=== PATIENT | male | born 1960 | race Caucasian/White ===

== ENCOUNTER → 2023-12-19 11:10 | Outpatient (REF) | payer OTHER, SELFPAY | LOC: HWRAD 11:10 | PROVIDERS: ATTENDING PHYSICIAN Registered Nurse | DX: M25.511 Pain in right shoulder (principal); R05.3 Chronic cough | CPT/HCPCS: 71260; 74170; Q9967 ==

== ENCOUNTER → 2024-02-02 15:51 | Outpatient (REF) | payer OTHER, SELFPAY | LOC: HWRCS 15:51 | PROVIDERS: ATTENDING PHYSICIAN Internal Medicine Cardiovascular Disease; FAMILY PHYSICIAN Family Medicine | DX: I31.8 Other specified diseases of pericardium (principal) | CPT/HCPCS: 93306 ==